=== PATIENT | male | born 1995 | race Caucasian/White ===

== ENCOUNTER 2016-07-22 20:07 | Emergency (ER) | payer SELFPAY ==
--- NOTE | 2016-07-22 22:15 | ER Document Report ---
HPI - HPI Patient complains to provider of: RIGHT HAND Onset: Yesterday Onset/Duration: Sudden Severity: Severe Pain Level: 4 - Declines pain medication Context: Patient presents emergency department with complaints of right hand pain. He reports he was running fell and slid on his hands. Small healing scattered abrasions noted Patient has history of fracture hand. Patient is right-hand dominant Associated Symptoms: None Exacerbated by: Movement Relieved by: Denies Similar symptoms previously: Yes Recently seen / treated by doctor: No - DERM Skin Color: Normal Past Medical History - General Information source: Patient - Social History Smoking Status: Current Every Day Smoker Cigarette use (# per day): Yes Chew tobacco use (# tins/day): No Frequency of alcohol use: None Drug Abuse: None Occupation: NONE Family History: Reviewed & Not Pertinent Patient has suicidal ideation: No Patient has homicidal ideation: No - Past Medical History Cardiac Medical History: Denies: Hx Heart Attack, Hx Hypertension Pulmonary Medical History: Denies: Hx Asthma, Hx Bronchitis, Hx COPD, Hx Pneumonia Neurological Medical History: Denies: Hx Cerebrovascular Accident, Hx Seizures Renal/ Medical History: Denies: Hx Peritoneal Dialysis Musculoskeltal Medical History: Denies Hx Arthritis Traumatic Medical History: Reports: Hx Fractures Surgical Hx: Negative - Immunizations Hx Diphtheria, Pertussis, Tetanus Vaccination: Yes Vertical Provider Document - CONSTITUTIONAL Agree With Documented VS: Yes Exam Limitations: No Limitations General Appearance: WD/WN, No Apparent Distress - INFECTION CONTROL TRAVEL OUTSIDE OF THE [place] IN LAST 30 DAYS: No - HEENT HEENT: Atraumatic, Normocephalic - NECK Neck: Supple - RESPIRATORY Respiratory: Breath Sounds Normal, No Respiratory Distress O2 Sat by Pulse Oximetry: 100 - CARDIOVASCULAR Cardiovascular: Regular Rate - MUSCULOSKELETAL/EXTREMETIES Musculoskeletal/Extremeties: MAEW, Tender - RIGHT HAND TTP and slight swelling noted across dorsally brisk cap refill good radial pulse, C/O Pain with flexion , small scattered healing abrasions noted - NEURO Level of Consciousness: Awake, Alert, Appropriate Course - Re-evaluation Re-evalutation: 07/22/16 23:14 Patient instructed on x-ray negative. Patient instructed deon wrap for comfort Tylenol Motrin for the pain. He verbalized understanding to all instructions. - Vital Signs Vital signs: Temp Pulse Resp BP Pulse Ox 97.9 F 76 20 138/80 H 100 07/22/16 20:53 04/04/17 20:53 07/22/16 20:53 07/22/16 20:53 07/22/16 20:53 - Diagnostic Test Radiology reviewed: Image reviewed, Reports reviewed - RAD/ HAND RIGHT 3 VIEWS IMPRESSION: NEGATIVE STUDY OF THE RIGHT HAND. NO RADIOGRAPHIC EVIDENCE OF ACUTE INJURY Procedures - Immobilization Right Hand Pre-Proc Neuro Vasc Exam: Normal Immobilizer type: Deon wrap Performed by: RN Post-Proc Neuro Vasc Exam: Unchanged from pre-exam Discharge - Discharge Clinical Impression: Right hand pain, Elevated blood pressure reading Condition: Stable Disposition: HOME, SELF-CARE Instructions: Ice & Elevation ([facility]), Use of Lvje-Wnm-Zudouig Ibuprofen ([facility]) Additional Instructions: *You have been evaluated for right hand pain, elevated blood pressure reading *Maintain the deon wrap for comfort *Monitor your abrasions, keep your hand clean. monitor for signs of infection such as redness,increased pain,warmth *Rest/Ice/Elevate *Follow up with orthopedics for continued pain-- call for an appointment *Take ibuprofen as indicated for pain *Follow up with a primary care provider within one week for recheck *Return to ED for worsening condition, changes, needs Monitor your blood pressure. Your blood pressure was elevated today. This may be because you were anxious, in pain or because you need medication. It is important to follow up with your primary care provider for full evaluation. Forms: Elevated Blood Pressure
[2016-07-22 23:13] VITALS: BP 136/90
== END 2016-07-22 23:13 | disposition home or self-care (01) ==
LOC: ER 20:07
DX: M79.641 Pain in right hand (principal); R03.0 Elevated blood-pressure reading, without diagnosis of hypertension; W19.XXXA Unspecified fall, initial encounter; F17.210 Nicotine dependence, cigarettes, uncomplicated
CPT/HCPCS: 99283

== ENCOUNTER 2019-07-26 13:35 | Emergency (ER) | payer SELFPAY ==
--- NOTE | 2019-07-26 14:20 | ER Document Report ---
ED Medical Screen (RME) - General TRAVEL OUTSIDE OF THE [place] IN LAST 30 DAYS: No <FELIPE ELLIOTT - Last Filed: 07/26/19 14:18> <HOMERO REYNOLDS JR - Last Filed: 07/26/19 18:58> - General Chief Complaint: Back Pain Stated Complaint: BACK PAIN Time Seen by Provider: 07/26/19 14:16 Notes: HPI: 24-year-old male presenting to the emergency department for evaluation of weakness in the left arm and left leg, some incontinence of urine over the last week. Patient states 1 week ago he helped move a couch. Did not have an acute injury but developed some tingling in the left fingers later that night. He states this has progressed and now involves the entire left arm with weakness and difficulty gripping items. Complains of pain over the thoracic back as well as the lumbar back. States 4 days ago began having increasing weakness and difficulty walking with the left leg. Reports some dribbling of urine which is not normal for him. Denies headache. Denies chest pain abdominal pain nausea vomiting or fever I have greeted and performed a rapid initial assessment of this patient. A comprehensive ED assessment and evaluation of the patient, analysis of test results and completion of the medical decision making process will be conducted by additional ED providers PHYSICAL EXAMINATION: Patient with some decreased sensation over the lateral aspect of the left arm relative to the right. 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 Slightly decreased extension and flexion at the elbow and shoulder as well 4/5 strength on the left. Patient appears to have intact flexion extension of the left foot at the ankle in extension and flexion at the knee, reports subjective decreased sensation to the medial aspect of the left calf and left inner thigh relative to the right. exam and rectal exam deferred in triage. Discussed with Dr. reynolds attending I have greeted and performed a rapid initial assessment of this patient. A comprehensive ED assessment and evaluation of the patient, analysis of test r esults and completion of medical decision making process will be conducted by an additional ED providers. (FELIPE ELLIOTT) - Related Data Allergies/Adverse Reactions: No Known Allergies Allergy (Verified 07/22/16 20:51) Past Medical History - Social History Frequency of alcohol use: None Drug Abuse: Marijuana - Past Medical History Cardiac Medical History: Denies: Hx Heart Attack, Hx Hypertension Pulmonary Medical History: Denies: Hx Asthma, Hx Bronchitis, Hx COPD, Hx Pneumonia Neurological Medical History: Denies: Hx Cerebrovascular Accident, Hx Seizures Renal/ Medical History: Denies: Hx Peritoneal Dialysis Musculoskeltal Medical History: Denies Hx Arthritis Traumatic Medical History: Reports: Hx Fractures - Immunizations Hx Diphtheria, Pertussis, Tetanus Vaccination: Yes <FELIPE ELLIOTT - Last Filed: 07/26/19 14:18> Physical Exam - Vital signs Vitals: Temp Pulse Resp BP Pulse Ox 97.9 F 86 18 149/90 H 96 07/26/19 13:39 07/26/19 13:39 07/26/19 13:39 07/26/19 13:39 07/26/19 13:39 Course - Laboratory Result Diagrams: 07/26/19 17:00 07/26/19 17:00 <HOMERO REYNOLDS JR - Last Filed: 07/26/19 18:58> - Vital Signs Vital signs: Temp Pulse Resp BP Pulse Ox 97.9 F 86 18 149/90 H 96 07/26/19 13:39 07/26/19 13:39 07/26/19 13:39 07/26/19 13:39 07/26/19 13:39 - Laboratory Laboratory results interpreted by me: 07/26/19 07/26/19 17:00 17:00 RBC 5.58 H RDW 14.1 H Creatine Kinase 334 H Critical Care Note <HOMERO REYNOLDS JR - Last Filed: 07/26/19 18:58> - Critical Care Note Comments: Both myself and IRASEMA Gandhi advised the patient of his medical condition. Also his mother spoke to Ellis on the phone and was advised of the patient's condition at the patient's request. Patient was advised he will be sent to a major medical facility for further evaluation of his diagnosis of multiple sclerosis. Patient appeared to understand this well. Patient was able to walk to the door and asked for something to drink (HOMERO REYNOLDS JR) Doctor's Discharge <FELIPE ELLIOTT - Last Filed: 07/26/19 14:18> <HOMERO REYNOLDS JR - Last Filed: 07/26/19 18:58> - Discharge Clinical Impression: New onset MS, Acute flare of multiple sclerosis, Unable to walk Condition: Stable Disposition: [facility]
--- NOTE | 2019-07-26 16:02 | ER Document Report ---
ED General - General Chief Complaint: Back Pain Stated Complaint: BACK PAIN Time Seen by Provider: 07/26/19 14:16 Notes: Patient is a 24-year-old male with the only reported past medical history being around the age of 12 or 13 he sprained his lower back playing football who presents to the emergency department with a chief complaint of back pain widespread, left arm and left leg sensory changes. Patient reports about a week ago he was helping move 2 couches that were large and awkwardly shaped. He states after he began developing widespread back pain. States the pain involves the entire neck and back. Mostly on the left side. He states he has pain in the entire left arm with numbness as well as numbness in the left lower legs. States he is able to ambulate but because it feels like the leg is asleep he loses his balance and falls. He states he feels like he has normal strength everywhere but the sensory changes caused him to feel like he has a decreased range of motion or strength in the extremity. States he is unable to lift the left arm secondary to pain. Holds the left hand in a contracted position. Denies any headache, visual disturbances, speech changes, confusion, chest pain or shortness of breath. He adds that he has had some occasional dribbling of urine here and there but no flat out incontinence of stool or bowel. Denies any genitourinary/saddle anesthesia TRAVEL OUTSIDE OF THE [place] IN LAST 30 DAYS: No - Related Data Allergies/Adverse Reactions: No Known Allergies Allergy (Verified 07/22/16 20:51) Past Medical History - Social History Smoking Status: Current Some Day Smoker Frequency of alcohol use: None Drug Abuse: Marijuana Family History: Reviewed & Not Pertinent Patient has suicidal ideation: No Patient has homicidal ideation: No - Past Medical History Cardiac Medical History: Denies: Hx Heart Attack, Hx Hypertension Pulmonary Medical History: Denies: Hx Asthma, Hx Bronchitis, Hx COPD, Hx Pneumonia Neurological Medical History: Denies: Hx Cerebrovascular Accident, Hx Seizures Renal/ Medical History: Denies: Hx Peritoneal Dialysis Musculoskeletal Medical History: Denies Hx Arthritis Traumatic Medical History: Reports: Hx Fractures - Immunizations Hx Diphtheria, Pertussis, Tetanus Vaccination: Yes Review of Systems - Review of Systems Notes: Per HPI Musculoskeletal: Back pain, Joint pain, Muscle pain, Neck pain Neurological/Psychological: Numbness, Tingling -: Yes All other systems reviewed and negative Physical Exam - Vital signs Vitals: Temp Pulse Resp BP Pulse Ox 97.9 F 86 18 149/90 H 96 07/26/19 13:39 07/26/19 13:39 07/26/19 13:39 07/26/19 13:39 07/26/19 13:39 - General General appearance: Appears well, Alert In distress: None - Respiratory Respiratory status: No respiratory distress Chest status: Nontender Breath sounds: Normal Chest palpation: Normal - Cardiovascular Rhythm: Regular Heart sounds: Normal auscultation - Back Back: Other - Diffuse tenderness to palpation, particularly on the left para musculature. No deformity step-off or crepitus. Pain with any movement. - Extremities Notes: Patient is able to hold the left arm and left leg against gravity however states he cannot exhibit full range of motion against gravity secondary to pain, not due to weakness. Reports diffuse tenderness to the arm and leg with palpation. Also states they both feel numb and tingly. Reports a decreased inspector balance wheel motion strength 3 out of 5 as compared with the right 5 out of 5. Good capillary refill distally in the hand. 2+ radial on the left and right. - Neurological Neuro grossly intact: Yes Cognition: Normal Orientation: AAOx4 Rexford Coma Scale Eye Opening: Spontaneous Corina Coma Scale Verbal: Oriented Rexford Coma Scale Motor: Obeys Commands Corina Coma Scale Total: 15 Speech: Normal Cranial nerves: Normal Motor strength normal: RUE, RLE Additional motor exam normals: Other - Limited motor testing of the left arm and leg secondary to pain. No: Equal inspector balance wheel motion, Pronator drift, Weakness Sensory: Other - Reported decreased sensation in the left arm - Psychological Associated symptoms: Normal affect, Normal mood - Skin Skin Temperature: Warm Skin Moisture: Dry Skin Color: Normal Course - Re-evaluation Re-evalutation: 07/26/19 17:41 Dr. wing and myself spoke with the patient at bedside and explained the findings of MRI to be consistent with an acute flare of MS, newly diagnosed. Discussed with him the need for transfer to a center with neurology. He called his mother on the phone and discussed with her preferences, they preferred somewhere closer and thereby wanted us to call [facility] for transfer. I s poke with the transfer center at [facility] and discussed with Ericka gordon neurology [employer] who agreed to see the patient in consultation for transfer but requested hospitalist admit to their service. Transfer center will call back with the hospitalist. 07/26/19 17:56 Spoke with [facility] transfer center again and I spoke with hospitalist, Modesto Villatoro who has accepted the patient for transfer. [facility] will arrange for transportation and call us back with an ETA. Patient is stable for transfer at this time. - Vital Signs Vital signs: Temp Pulse Resp BP Pulse Ox 97.9 F 86 18 149/90 H 96 07/26/19 13:39 07/26/19 13:39 07/26/19 13:39 07/26/19 13:39 07/26/19 13:39 - Laboratory Result Diagrams: 07/26/19 17:00 07/26/19 17:00 Laboratory results interpreted by me: 07/26/19 17:00 RBC 5.58 H RDW 14.1 H Discharge - Discharge Clinical Impression: New onset MS, Acute flare of multiple sclerosis, Unable to walk Condition: Stable Disposition: [facility]
--- NOTE | 2019-07-26 17:02 | RADIOLOGY REPORT (SQ) ---
EXAM DESCRIPTION: MRI LUMBAR SPINE WITHOUT IMAGES COMPLETED DATE/TIME: 07/26/2019 4:40 pm REASON FOR STUDY: weakness COMPARISON: None. TECHNIQUE: Sagittal and Axial imaging includes T1, T2, STIR and gradient echo sequences. Coronal T2/ HASTE imaging. LIMITATIONS: Patient was unable to complete the study. Axial sequences were not done. FINDINGS: Limited study. No abnormal marrow signal is seen. Disc signal intensity is unremarkable. Conus medullaris is at the appropriate level at L1. No significant disc protrusions are seen. No central canal or foraminal stenoses are appreciated. There is no abnormality in the paraspinous soft tissues. . IMPRESSION: No significant or acute finding is present on this very limited study. TECHNICAL DOCUMENTATION: JOB ID: [id number] 2010 [employer]- All Rights Reserved Reading location - IP/workstation name: [email or web address]
[2019-07-26] MEDS ORDERED: DEXAMETHASONE SOD PHOS INJ 10 MG/1 ML VIAL IV ONE (17:10)
--- NOTE | 2019-07-26 17:11 | RADIOLOGY REPORT (SQ) ---
EXAM DESCRIPTION: MRI CERVICAL SPINE WITHOUT IMAGES COMPLETED DATE/TIME: 07/26/2019 4:40 pm REASON FOR STUDY: weakness COMPARISON: CT brain 07/26/2019 MRI thoracic spine 07/26/2019, MRI lumbar spine 07/26/2019 TECHNIQUE: Sagittal and Axial imaging includes T1, T2, STIR and gradient echo sequences. LIMITATIONS: None. FINDINGS: ALIGNMENT: Normal. VERTEBRAE: Intact. BONE MARROW: Normal. No marrow replacement or reactive changes. DISCS: Normal. No significant abnormal signal or loss of height. HARDWARE: None in the spine. CORD AND BASE OF BRAIN: There is abnormal increased intrinsic cord signal along the right lateral cer vical is spinal cord at the C2-3 level, best shown on sagittal T2 image 6, and axial series 7, image 5. A 2nd focus 7 abnormal intrinsic cord signal is present, less intense, at the C4-5 level along the fa r rightward cord. This is best shown on sagittal T2 image 6, and axial series 7 image 11. Both of these lesions are worrisome for demyelinating disease. Findings discussed with LIDA in the emergency room. SOFT TISSUES: No soft tissue masses. No gross evidence of dissection on the axial T2 series 7 images . C1-C2: No significant spinal stenosis. C2-C3: No significant spinal stenosis or exit foraminal stenosis. C3-C4: No significant spinal stenosis or exit foraminal stenosis. C4-C5: No significant spinal stenosis or exit foraminal stenosis. C5-C6: No significant spinal stenosis or exit foraminal stenosis. C6-C7: No significant spinal stenosis or exit foraminal stenosis. C7-T1: No significant spinal stenosis or exit foraminal stenosis. UPPER THORACIC: Incompletely imaged. No significant spinal stenosis or exit foraminal stenosis. OTHER: No other significant finding. IMPRESSION: Primary cord signal abnormalities at the C2-3 and C4-5 levels on the right side, likely old demyelinating plaques. Findings discussed with the ER practitioner TECHNICAL DOCUMENTATION: JOB ID: [id number] [employer]- All Rights Reserved Reading location - IP/workstation name: [id number]
--- NOTE | 2019-07-26 17:13 | RADIOLOGY REPORT (SQ) ---
EXAM DESCRIPTION: CT HEAD WITHOUT IMAGES COMPLETED DATE/TIME: 07/26/2019 4:48 pm REASON FOR STUDY: SERGIO and LL ext. numbness COMPARISON: None. TECHNIQUE: Axial images acquired through the brain without intravenous contrast. Images reviewed wi th bone, brain and subdural windows. Additional sagittal and coronal reconstructions were generated. Images stored on PACS. All CT scanners at this facility use dose modulation, iterative reconstruction, and/or weight based d osing when appropriate to reduce radiation dose to as low as reasonably achievable (ALARA). [facility]: Dose Right [facility]: CareDose [facility]: Dose Right [facility]: Teradose 4D [facility]: Smart Technologies RADIATION DOSE: CT Rad equipment meets quality standard of care and radiation dose reduction techniq ues were employed. CTDIvol: 48.7 mGy. DLP: 979 mGy-cm. mGy. LIMITATIONS: None. FINDINGS: VENTRICLES: Normal size and contour. CEREBRUM: In the right posterior limb internal capsule, a vague area of low attenuation is present me asuring about 1 cm in size. This is abnormal but nonspecific, and could represent focal ischemic yisel nge or acute demyelinating disease. This is best shown on axial image [address] evidence of acute intracranial hemorrhage, mass effect, or midline shift CEREBELLUM: No masses. No hemorrhage. No alteration of density. No evidence for acute infarction. EXTRAAXIAL SPACES: No fluid collections. No masses. ORBITS AND GLOBE: No intra- or extraconal masses. Normal contour of globe without masses. CALVARIUM: No fracture. PARANASAL SINUSES: No fluid or mucosal thickening. SOFT TISSUES: No mass or hematoma. OTHER: No other significant finding. IMPRESSION: 1 cm hypodensity the right posterior limb internal capsule region. This could represen t acute demyelinating disease or acute ischemic change EVIDENCE OF ACUTE STROKE: NO. COMMENT: Findings discussed with LIDA in the emergency room Quality ID # [id number]: Final reports with documentation of one or more dose reduction techniques (e.g., Au tomated exposure control, adjustment of the mA and/or kV according to patient size, use of iterative reconstruction technique) TECHNICAL DOCUMENTATION: JOB ID: [id number] 2010 [employer]- All Rights Reserved Reading location - IP/workstation name: [email or web address]
--- NOTE | 2019-07-26 17:19 | RADIOLOGY REPORT (SQ) ---
EXAM DESCRIPTION: MRI THORACIC SPINE WITHOUT IMAGES COMPLETED DATE/TIME: 07/26/2019 4:40 pm REASON FOR STUDY: weakness COMPARISON: MRI cervical spine same date, MRI lumbar spine same TECHNIQUE: Sagittal and Axial imaging includes T1, T2, STIR and gradient echo sequences. LIMITATIONS: None. FINDINGS: LOCALIZER: No worrisome findings. ALIGNMENT: Normal. VERTEBRAE: Intact. BONE MARROW: Normal. No marrow replacement or reactive changes. HARDWARE: None in the spine. CORD: Normal in size and signal intensity. No focal cord lesions are identified. SOFT TISSUES: No soft tissue masses. THORACIC DISCS T1-T12: No significant spinal stenosis or exit foraminal stenosis. There is minimal p osterior disc bulging at T6-7, T9-10, T10-11, T11-12 without significant central or foraminal stenosi s. LOWER CERVICAL: Incompletely imaged. No significant spinal stenosis or exit foraminal stenosis. UPPER LUMBAR: Incompletely imaged. No significant spinal stenosis or exit foraminal stenosis. OTHER: No other significant finding. IMPRESSION: NORMAL MRI THORACIC SPINE. TECHNICAL DOCUMENTATION: JOB ID: [id number] [employer]- All Rights Reserved Reading location - IP/workstation name: [id number]
[2019-07-26 17:23] LABS: ABSOLUTE LYMPHOCYTES (AUTO) 2.1 10^3/uL (0.5-4.7); ABSOLUTE MONOCYTES (AUTO) 1.3 10^3/uL (0.1-1.4); BASOPHILS % (AUTO) 0.5 % (0-2); EOSINOPHILS % (AUTO) 0.3 % (0-6); HEMATOCRIT 46.2 % (37.9-51.0); HEMOGLOBIN 16.4 g/dL (13.5-17.0); LYMPHOCYTES % (AUTO) 19.7 % (13-45); MEAN CORPUSCULAR HEMOGLOBIN 29.4 pg (27.0-33.4); MEAN CORPUSCULAR HGB CONC 35.5 g/dL (32.0-36.0); MEAN CORPUSCULAR VOLUME 83 fl (80-97); MONOCYTES % (AUTO) 12.8 % (3-13); PLATELET COUNT 323 10^3/uL (150-450); RED BLOOD COUNT 5.58 10^6/uL (4.35-5.55); RED CELL DISTRIBUTION WIDTH 14.1 % (11.5-14.0); SEGMENTED NEUTROPHILS % (AUTO) 66.7 % (42-78); TOTAL CELLS COUNTED % (AUTO) 100 %; WHITE BLOOD COUNT 10.5 10^3/uL (4.0-10.5)
[2019-07-26] MEDS ORDERED: HYDROMORPHONE HCL INJ/PF 2 MG/ML AMPULE IV ONE (17:24)
[2019-07-26 18:00] LABS: ALBUMIN 4.9 g/dL (3.5-5.0); ALKALINE PHOSPHATASE 59 U/L (38-126); ANION GAP 12 (5-19); ASPARTATE AMINO TRANSFERASE 29 U/L (17-59); BILIRUBIN,DIRECT 0.2 mg/dL (0.0-0.4); BILIRUBIN,TOTAL 0.8 mg/dL (0.2-1.3); BLOOD UREA NITROGEN 11 mg/dL (7-20); CALCIUM 10.1 mg/dL (8.4-10.2); CARBON DIOXIDE 22 mmol/L (22-30); CHLORIDE 104 mmol/L (98-107); CREATINE KINASE 334 U/L (55-170); GLUCOSE 80 mg/dL (75-110); POTASSIUM 4.5 mmol/L (3.6-5.0); TOTAL PROTEIN 8.1 g/dL (6.3-8.2)
[2019-07-26 20:09] VITALS: BP 155/83
--- NOTE | 2019-07-26 20:19 | RADIOLOGY REPORT (SQ) ---
EXAM DESCRIPTION: MRI HEAD COMBO IMAGES COMPLETED DATE/TIME: 07/26/2019 7:51 pm REASON FOR STUDY: acute MS flare ? COMPARISON: None. TECHNIQUE: Multiplanar imaging includes noncontrasted T1, T2, FLAIR, diffusion with ADC map and post gadolinium contrast T1 sequences. Images stored on PACS. CONTRAST TYPE AND DOSE: 20 mL Dotarem. RENAL FUNCTION: Not indicated. ACR Type II contrast agent associated with few, if any, unconfounded cases of NSF LIMITATIONS: None. FINDINGS: ANATOMY: No anomalies. Normal vascular flow voids. Pituitary fossa normal. CSF SPACES: Normal in size and contour. No hemorrhage. CEREBRUM: Sulci and gyri normal in size and contour. Normal white matter signal on FLAIR imaging. No evidence of hemorrhage, mass, or extraaxial fluid collection. No abnormal enhancement post contrast. POSTERIOR FOSSA: No signal alteration. No hemorrhage. No edema, masses, or mass effect. Internal lisa tory canals, cerebellopontine angles, mastoids normal. No enhancing lesions. No abnormal enhancement post contrast. DIFFUSION IMAGING: There is an area of abnormal diffusion in the basal ganglia on the right. ORBITS: No masses. Globes normal. PARANASAL SINUSES: No fluid levels. Mucosa normal. OTHER: Additional sagittal and axial T1 weighted images with contrast were obtained through the cervi ashley spine. No enhancing lesion is seen in the cervical spine. IMPRESSION: There is what appears to be a small acute lacunar infarction in the right basal ganglia. The overall appearance of the brain does not suggest multiple sclerosis or other demyelinating dise ase. No enhancing lesion is seen. There is no enhancing lesion in the cervical spine. EVIDENCE OF ACUTE STROKE: Yes RIGHT MCA. TECHNICAL DOCUMENTATION: JOB ID: [id number] [employer]- All Rights Reserved Reading location - IP/workstation name: [email or web address]
== END 2019-07-26 20:06 | disposition short-term general hospital (02) ==
LOC: ER 13:35
DX: G35 Multiple sclerosis (principal); M54.9 Dorsalgia, unspecified; M54.2 Cervicalgia; M79.602 Pain in left arm; R20.0 Anesthesia of skin; M79.10 Myalgia, unspecified site; M25.50 Pain in unspecified joint; F17.200 Nicotine dependence, unspecified, uncomplicated; F12.10 Cannabis abuse, uncomplicated
CPT/HCPCS: 99284; 96374; 96375; 36415; 82550; 85025; 80053; 70553; 72141; 72146; 72148; 70450; A9576; J1170; J1100